=== PATIENT | male | born 1985 | race Asian ===

== ENCOUNTER 2017-02-27 08:34 | Emergency (ER) | payer SELFPAY ==
[~2017-02-27] VITALS: Ht 177.8 cm; Wt 72.6 kg
[2017-02-27 08:39] VITALS: BP_SYST 147
[2017-02-27 08:50] VITALS: BP_SYST 147
== END 2017-02-27 08:50 ==
LOC: SED 08:34
DX: S20.212A Contusion of left front wall of thorax, initial encounter (principal); X58.XXXA Exposure to other specified factors, initial encounter; Y93.89 Activity, other specified; Y92.488 Other paved roadways as the place of occurrence of the external cause; Y99.8 Other external cause status
CPT/HCPCS: 99283